=== PATIENT | male | born 1980 | race Caucasian/White ===

== ENCOUNTER 2018-12-21 18:16 | Emergency (ER) | payer SELFPAY ==
[~2018-12-21] VITALS: Ht 152.4 cm; Wt 73.0 kg
[2018-12-21 18:18] VITALS: Ht 152.4 cm; Wt 73.0 kg
[2018-12-21 19:47] VITALS: BP 145/85
== END 2018-12-21 19:47 | disposition other institution (70) ==
LOC: ED 18:16
DX: L03.116 Cellulitis of left lower limb (principal); S80.811A Abrasion, right lower leg, initial encounter; S80.812A Abrasion, left lower leg, initial encounter; X58.XXXA Exposure to other specified factors, initial encounter; Y93.39 Activity, other involving climbing, rappelling and jumping off; Y92.89 Other specified places as the place of occurrence of the external cause; Y99.8 Other external cause status

== ENCOUNTER 2018-12-21 18:16 | Emergency (ER) | payer OTHER | END 2018-12-21 19:47 | disposition other institution (70) | LOC: ED 18:16 | DX: Z02.89 Encounter for other administrative examinations (principal) ==